=== PATIENT | female | born 1980 | race African-American/Black ===

== ENCOUNTER 2019-10-06 21:22 | Emergency (ER) | payer SELFPAY ==
[2019-10-06] MEDS ORDERED: ACETAMINOPHEN 325 MG TABLET PO ONE (21:29)
--- NOTE | 2019-10-06 21:30 | ER Document Report ---
ED Medical Screen (RME) - General Stated Complaint: FALL,HEAD PAIN Time Seen by Provider: 10/06/19 21:27 Primary Care Provider: JENS CARIAS [Primary Care Provider] - Follow up as needed Notes: Patient is a 38-year-old female who presents to the emergency department after falling off a ladder. She was hanging [place] lights and ended up falling off. This happened shortly prior to arrival to the emergency department. Exam: Patient has a hematoma to the frontal area of her head. ALFREDO. I have greeted and performed a rapid initial assessment of this patient. A comprehensive ED assessment and evaluation of the patient, analysis of test results and completion of medical decision making process will be conducted by an additional ED providers. - Related Data Allergies/Adverse Reactions: No Known Allergies Allergy (Unverified 03/08/12 15:16) Past Medical History - Immunizations Hx Diphtheria, Pertussis, Tetanus Vaccination: Yes - 11/02/2011 Doctor's Discharge - Discharge Referrals: JENS CARIAS [Primary Care Provider] - Follow up as needed
--- NOTE | 2019-10-06 22:32 | RADIOLOGY REPORT (SQ) ---
EXAM DESCRIPTION: XR RIBS RIGHT WITH CHEST, 3 views COMPLETED DATE/TME: 10/06/2019 21:28 CLINICAL HISTORY: 38 years, Female, fall off ladder; pain COMPARISON: None. NUMBER OF VIEWS: TECHNIQUE: LIMITATIONS: None. FINDINGS: I cannot identify a right-sided rib fracture. No evidence of pulmonary infiltrate or pleural effusion. The heart and mediastinum are unremarkable. Pulmonary vascularity appears normal. There is a mild dextroscoliosis. IMPRESSION: No evidence of right-sided rib fracture. copyright 2010 [employer]- All Rights Reserved
--- NOTE | 2019-10-06 22:35 | RADIOLOGY REPORT (SQ) ---
EXAM DESCRIPTION: CT cervical spine without contrast CLINICAL HISTORY: 38 years Female, fall off ladder COMPARISON: None. TECHNIQUE: Axial images of the cervical spine were performed, without the use of intravenous contrast, with sagittal and coronal reformatted images This exam was performed according to our departmental dose-optimization program which includes use of Automated Exposure Control, adjustment of the mA and/or kV according to patient size and/or use of iterative reconstruction technique. FINDINGS: There is reversal of the cervical lordosis, possibly indicating muscle spasm. No fracture or dislocation. No evidence of prevertebral swelling. There are mild emphysematous changes in the lung apices. IMPRESSION: Possible muscle spasm. Mild emphysema.
--- NOTE | 2019-10-06 22:38 | RADIOLOGY REPORT (SQ) ---
EXAM DESCRIPTION: CT head without contrast CLINICAL HISTORY: 38 years Female, fall off ladder COMPARISON: None. TECHNIQUE: Axial images of the head were performed without the use of intravenous contrast, with sagittal and coronal reformatted images. This exam was performed according to our departmental dose-optimization program which includes use of Automated Exposure Control, adjustment of the mA and/or kV according to patient size and/or use of iterative reconstruction technique. FINDINGS: No skull fracture. No intracranial bleed. No evidence of acute infarct. No evidence of mass or hydrocephalus. IMPRESSION: No skull fracture. No intracranial bleed.
[2019-10-06] MEDS ORDERED: ACETAMINOPHEN 325 MG TABLET ONE (23:31)
[2019-10-07] MEDS ORDERED: KETOROLAC TROMETHAMINE 60 MG/2 ML SDV IM ONE (00:57)
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
--- NOTE | 2019-10-07 02:56 | RADIOLOGY REPORT (SQ) ---
Lumbar spine five view on 10/07/2019 at 2:02 AM CLINICAL INDICATION: Trauma, pain COMPARISON: None FINDINGS: The lumbar spine is well aligned. Disc space height is well-maintained. There are no fractures. No bony abnormality is noted. IMPRESSION: No acute abnormality.
[2019-10-07 11:06] LABS: ABSOLUTE BASOPHILS # (AUTO) 0.1 10^3/uL (0.0-0.2); ABSOLUTE EOSINOPHILS # (AUTO) 0.2 10^3/uL (0.0-0.6); ABSOLUTE LYMPHOCYTES (AUTO) 1.8 10^3/uL (0.5-4.7); ABSOLUTE MONOCYTES (AUTO) 0.8 10^3/uL (0.1-1.4); EOSINOPHILS % (AUTO) 2.7 % (0-6); HEMATOCRIT 32.6 % (36.0-47.0); HEMOGLOBIN 10.6 g/dL (12.0-15.5); LYMPHOCYTES % (AUTO) 26.2 % (13-45); MEAN CORPUSCULAR HEMOGLOBIN 23.9 pg (27.0-33.4); MEAN CORPUSCULAR HGB CONC 32.5 g/dL (32.0-36.0); MEAN CORPUSCULAR VOLUME 74 fl (80-97); MONOCYTES % (AUTO) 11.6 % (3-13); PLATELET COUNT 511 10^3/uL (150-450); RED BLOOD COUNT 4.42 10^6/uL (3.72-5.28); RED CELL DISTRIBUTION WIDTH 16.5 % (11.5-14.0); SEGMENTED NEUTROPHILS % (AUTO) 58.5 % (42-78); TOTAL CELLS COUNTED % (AUTO) 100 %; WHITE BLOOD COUNT 6.9 10^3/uL (4.0-10.5)
[2019-10-07 11:34] LABS: ALBUMIN 3.4 g/dL (3.5-5.0); ALKALINE PHOSPHATASE 64 U/L (38-126); ANION GAP 10 (5-19); ASPARTATE AMINO TRANSFERASE 30 U/L (14-36); BILIRUBIN,DIRECT 0.1 mg/dL (0.0-0.4); BILIRUBIN,TOTAL 0.7 mg/dL (0.2-1.3); BLOOD UREA NITROGEN 13 mg/dL (7-20); CARBON DIOXIDE 25 mmol/L (22-30); CHLORIDE 106 mmol/L (98-107); GLUCOSE 96 mg/dL (75-110); POTASSIUM 3.5 mmol/L (3.6-5.0); TOTAL PROTEIN 7.2 g/dL (6.3-8.2)
[2019-10-07 11:35] LABS: ACETAMINOPHEN < 10 ug/mL (10-30); ALCOHOL < 10 mg/dL (NONE DETECTED); SALICYLATE < 1.0 mg/dL (2.0-20.0)
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
[2019-10-07 13:09] VITALS: BP 106/52
--- NOTE | 2019-10-07 13:09 | EKG REPORT ---
SEVERITY:- NORMAL ECG - SINUS RHYTHM : Confirmed by: Ayleen Bah MD 07-Oct-2019 13:08:16
== END 2019-10-07 13:02 | disposition home or self-care (01) ==
LOC: ER 21:22
DX: S00.83XA Contusion of other part of head, initial encounter (principal); X58.XXXA Exposure to other specified factors, initial encounter; R51 Headache; M54.5 Low back pain; R09.89 Other specified symptoms and signs involving the circulatory and respiratory systems; R45.851 Suicidal ideations; F17.200 Nicotine dependence, unspecified, uncomplicated
CPT/HCPCS: 93005; 99285; 96372; 36415; 80307 ×3; 84703; 85025; 80053; 72110; 71101; 70450; 72125; 93010; L0120; J1885